=== PATIENT | male | born 1930 | race Caucasian/White ===

== ENCOUNTER 2017-01-22 14:46 | Inpatient (IN) | payer OTHER ==
--- NOTE | ~2017-01-22 | CN ---
Consultation Report [facility] [address] [place]. [address] NAME: TERRIE GRAY : 32 STATUS : ADM Alanna PAT#: [id number] AGE: 86 ADM/REG DATE : 01/22/17 MR#: [id number] REPORT SERV DATE: 01/23/17 DICTATED BY: DATE: REPORT STATUS : Draft TRANSCRIBED BY: MODL DATE: 01/23/17 NEUROLOGY CONSULTATION DATE OF CONSULTATION: 01/23/2017 REASON FOR CONSULT: Stroke and hemorrhagic conversion. HISTORY OF PRESENT ILLNESS: This is an 86-year-old male who presented to [facility] secondary to complaints of vision loss that occurred on 01/22/2017. Symptoms seems to subsequently improve but no focal weakness was noted. The patient at baseline was noted to have fairly severe dementia with confusion. The patient's Namenda as well as Aricept have been stopped. The patient's family is not quite knowing how reliable patient is in reporting vision symptoms. Otherwise, no significant dysarthria was reported. The patient currently was noted to be agitated which according to the family has been a new development after hospital admission. No previous noted behavior issue with dementia was noted. The patient does have a significant history with the confusion but still able to recognize daughter, mold maker plastic molds, as well as next-door neighbor. The patient is unable to recall where he is and does not know year and day for quite a long time. The patient is still able to ambulate by himself but was noted to have difficulties remembering to eat unless the food is right next to him in which case the patient will tend to snack. The patient otherwise required assistance for care at home. No recent illness, fever, chills, nausea, vomiting, chest pain, or shortness of breath was otherwise reported. REVIEW OF SYSTEMS: Negative except for those mentioned in the HPI. PAST MEDICAL HISTORY: Significant for history of the significant dementia as well as oxygen- dependent COPD, emphysema, hypertension, coronary artery disease status post bypass surgery, bilateral carotid endarterectomy as well as prostatectomy secondary to possible prostate cancer. ALLERGIES: THE PATIENT WAS NOTED TO HAVE MULTIPLE ALLERGIES INCLUDING SULFA WELL SULFONYLUREAS, CARBONIC ANHYDRASE INHIBITORS, THIAZIDE, SULFA, FUROSEMIDE, SULFADIAZINE, SILVER NITRATE, AND CELECOXIB. HOME MEDICATIONS: Consist of amlodipine, aspirin, lisinopril, and pravastatin. SOCIAL HISTORY: The patient does have a son. The patient does have previous tobacco usage and no current alcohol or recreational drug usage. The patient does not have any current tobacco usage. It is unclear when patient quit tobacco smoking. FAMILY HISTORY: Significant for leukemia. REVIEW OF SYSTEMS: Consultation Report [place] [id number] [place]. [address] NAME: TERRIE GRAY : 32 STATUS : ADM Alanna PAT#: [id number] AGE: 86 ADM/REG DATE : 01/22/17 MR#: [id number] REPORT SERV DATE: 01/23/17 DICTATED BY: DATE: REPORT STATUS : Draft TRANSCRIBED BY: MODL DATE: 01/23/17 Again, review of systems otherwise negative except for those mentioned in the HPI. PHYSICAL EXAMINATION: VITAL SIGNS: At the time of evaluation overnight, patient was noted to have vital signs with T-max of 98.3, heart rate of 82 to 127, respirations of 14 to 20, and blood pressure of 106 to 171 over 55 to 98. GENERAL: The patient is well developed, well nourished, no acute distress. CARDIOVASCULAR EXAMINATION: Regular rate and rhythm. No carotid bruits were otherwise auscultated. PULMONARY: Examination was clear to auscultation bilaterally. NEUROLOGICAL EXAMINATION: Generally, the patient is alert, does not answer orientation question, does not follow commands. The patient was noted to have some dysarthria at the time of evaluation. Cranial nerves 2 through 12, pupils equal, round, and reactive to light. Extraocular eye movement was noted to be intact. The patient does not appear to have good blink to threat response in bilateral visual coffman. Facial expression appeared to be roughly symmetric. The patient does have purposeful movement in bilateral upper extremity and lower extremity with the patient appeared to have response to noxious stimulation. Deep tendon reflex was attenuated throughout. Gait and cerebellar examination were not performed secondary to patient's confusion and agitation as well as difficulty following commands. LABORATORY STUDIES: Demonstrated white blood cell count of 7.6, hemoglobin of 14.2, hematocrit of 43.6, platelet count of 149. Chemistry panel: Sodium 137, potassium 3.9, chloride 110, bicarb 27, BUN of 21, creatinine 1.48, glucose of 208, calcium of 8.4, magnesium 1.6. Serum cholesterol 145, HDL of 28, LDL of 91, triglyceride of 132, vitamin B12 of 527, folate of 24.6, TSH of 1.75 with a hemoglobin A1c of 9.0. The patient's carotid Doppler study otherwise demonstrated no significant carotid diseases. The patient's MRI of the brain demonstrated embolic type of stroke with the patient's strongest stroke burden in the posterior left MCA territory consist of left temporoparietal and some occipital area with hemorrhagic conversion, mild mass effect was seen in, but no clear midline shift was appreciated. The patient in addition also noted small foci of acute stroke in the right subcortical area as well as occipital area. IMPRESSION: 1. Intraparenchymal hemorrhage secondary to hemologic conversion of underlying stroke. 2. Embolic stroke. The patient does have left MCA stroke involving temporal and parietal area with a hemorrhagic conversion as well as small stroke in the right subcortical as well as occipital area. No clear midline shift was seen on DWI sequence. The patient baseline was noted to have significant dementia with patient only recognizing family members, having difficulties at times with p.o. diet and required assistance with activities of daily living. As a result, this patient is unlikely to be good surgical candidate for craniectomy. At this time, we will discontinue aspirin and hold any kind of anticoagulation. Secondary to patient's poor functional status, we will not perform any aggressive diagnostic testing. As a result, we will not perform LEELA or loop Consultation Report [address] [place]. [address] NAME: TERRIE GRAY : 32 STATUS : ADM Alanna PAT#: [id number] AGE: 86 ADM/REG DATE : 01/22/17 MR#: [id number] REPORT SERV DATE: 01/23/17 DICTATED BY: DATE: REPORT STATUS : Draft TRANSCRIBED BY: MODL DATE: 01/23/17 recorder placement secondary to patient's agitation which could be secondary to hospital acquired delirium. We will provide patient with Haldol 1-2 mg IV q.4 to 6 hours as needed for agitation. We will have Speech Therapy perform swallow study once agitation is improved. We will plan to transition patient from Haldol to possible p.o. Seroquel for agitation control. RECOMMENDATION: 1. Discontinue aspirin. 2. No LEELA or loop recorder secondary to poor baseline function. 3. The patient is unlikely to be a good surgical candidate to support surgical intervention secondary to baseline functional status. 4. Haldol 1-2 mg IV q.4 hours to q.6h hours as needed for agitation. 5. Speech Therapy for swallow study. 6. Once the patient's agitation improve, we will transition patient from Haldol to p.o. Seroquel. [facility]/MODL Kurt Rivera MD / [id number] CC: Nancy Gonsales M.D.
--- NOTE | ~2017-01-22 | IDS ---
Interim Discharge Summary [facility] [address] [place]. [address] NAME: TERRIE GRAY : 32 STATUS : ADM IN PAT#: [id number] AGE: 86 ADM/REG DATE : 01/22/17 MR#: [id number] REPORT SERV DATE: 01/29/17 DICTATED BY: ELIAZAR AGUILAR DATE: 01/29/17 REPORT STATUS : Draft TRANSCRIBED BY: MODL DATE: 01/29/17 ADMISSION DATE: 01/22/2017 DISCHARGE DATE: REASON FOR ADMISSION: This is an 86-year-old male with a history of dementia, who has been brought in by the family because of transient visual loss that he had had earlier today. INTERIM DISCHARGE DIAGNOSES: 1. 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 2. Hypertension. 3. Diabetes type 2. 4. Chronic obstructive pulmonary disease. 5. Coronary artery disease. 6. Poor appetite, malnutrition. HOSPITAL COURSE: 1. CVA. The patient was admitted and neuro was consulted. The patient had MRI of the brain per Neuro on 01/23/2017, this would show acute mid centrum semiovale and occipital infarction, right side consistent with ABDULKADIR territory infarction, partially hemorrhagic, large temporoparietal infarction left side with mass effect and hemorrhage. Extra-axial fluid collection over the frontoparietal region, may represent hygroma and/or chronic subdural hematoma. Discussions with family between Neurology and primary team concluded that the patient was not a surgical candidate and was DNR. The patient would have echocardiogram which would show borderline left ventricular function with EF of 45% to 50%. Right ventricle function is intact. Left and right atria appear dilated, valvular anatomy poorly defined, no significant valvular dysfunction suggested. The patient would also have a carotid blood flow study which would show category 1 internal carotid bilaterally, less than 50% stenosis. The patient has not been on aspirin IV or Plavix obviously due to the hemorrhagic conversion, has been on statin. The patient for the first several days was mainly nonresponsive, sleeping a lot, but since then has become more alert and interactive, and has even been able to get up with physical therapy and walk in the hallway. He has not been interested in eating at all, just nibble, taking a few bites of pudding, that sort of thing. I spoke with family about their wishes for feeding tube. They do not wish for the patient to have a feeding tube. So, we will start the patient on mirtazapine for appetite stimulation and supply the patient with Ensure t.i.d. and encourage him to eat and drink. The patient's physical therapy eval recommended care home facility and so case management is working on arranging that; however with being a holiday weekend, we will not be until Monday until that can be arranged. 2. Diabetes type 2. Blood sugars well controlled, ranging from 96 to 134 in the last 24 hours. 3. COPD, at baseline, stable. 4. Hypertension, blood pressures have been a little elevated during stay. We have started the patient on Norvasc and had some improvement. The patient is now on Norvasc 10 mg p.o. daily. Interim Discharge Summary [address] [place]. [address] NAME: TERRIE GRAY : 32 STATUS : ADM IN [facility]#: [id number] AGE: 86 ADM/REG DATE : 01/22/17 MR#: [id number] REPORT SERV DATE: 01/29/17 DICTATED BY: ELIAZAR AGUILAR DATE: 01/29/17 REPORT STATUS : Draft TRANSCRIBED BY: ANKUR DATE: 01/29/17 CURRENT MEDICATIONS: 1. Norvasc 10 mg p.o. daily. 2. Sliding scale insulin NovoLog, before meals and at bedtime, Accu-Cheks. 3. Pravastatin 40 mg p.o. at bedtime. 4. Mirtazapine 25 mg p.o. at bedtime. CURRENT PLAN: The patient has care home rehab arranged. There were hospice discussions already with the family. They are not opposed to hospice, but since the patient has displayed some bounce back from this episode, they wish for patient to attempt rehab, and if unsuccessful, then we will consider hospice at that time. The patient has been able to follow directions and work with PT, so this seems like a reasonable goal. ALIZA/ANKUR Eliazar Aguilar APN / [id number] CC: Brendan Calle M.D. Jake South M.D. Elli Cotton, DNP, [facility]-
--- NOTE | ~2017-01-22 | HP ---
History And Physical [place] [id number] [facility]. [address] NAME: TERRIE GRAY : 32 STATUS : ADM Alanna PAT#: [id number] AGE: 86 ADM/REG DATE : 01/22/17 MR#: [id number] REPORT SERV DATE: 01/23/17 DICTATED BY: KATIE MOFFETT DATE: 01/22/17 REPORT STATUS : Draft TRANSCRIBED BY: MODL DATE: 01/22/17 DATE OF ADMISSION: 01/22/2017 HISTORY OF PRESENT ILLNESS: The patient is a very pleasant 86-year-old male with a history of dementia. He was brought today by his daughter and son-in-law because of episode of transient visual loss that he had earlier during the day. As per patient's daughter's report, the patient was with his caregiver when this episode happen and according to caregiver, the patient bent it over and when he bent it over, he told the caregiver that he cannot see anything and he said that he had visual loss. He denied any chest pain, no shortness of breath, no fever, no rash, no headache, and ambulance was called. So, the patient was brought to [facility] and according to patient's daughter, he regained his vision while he was in an ambulance. Currently, he says that his vision is okay. He denies any chest pain. No shortness of breath. No headache. No fever. No rash. No cough. REVIEW OF SYSTEMS: All 14-point review of systems done and negative except what is stated in the history of present illness. PAST MEDICAL HISTORY: Past medical history was collected from old records as well as from the patient's daughter because the patient has dementia and he cannot really give correct history. The patient has oxygen dependent COPD, emphysema, hypertension, history of coronary artery disease status post coronary artery bypass surgery, history of bilateral carotid endarterectomy, history of prostatectomy likely for prostate cancer, but daughter does not know why he had prostatectomy, as well as history of appendectomy. The patient has dementia and he stays by himself, but he has a caregiver and when caregiver is not there, daughter always there. SURGICAL HISTORY: As listed above. Also, the patient's daughter reported that recently patient's primary care physician did swallowing study on the patient because he had some episodes of coughing and abnormal swallowing and he said that he was told that he can eat normal diet and the swallowing was not severely abnormal. ALLERGIES: THERE ARE MULTIPLE ALLERGIES WHICH INCLUDE SULFA, SULFONYLUREAS, CARBONIC ANHYDRASE INHIBITORS, THIAZIDE, SULFA FUROSEMIDE, SULFADIAZINE, SULFASALAZINE, SILVER NITRATE, AND CELECOXIB. HOME MEDICATIONS: Include amlodipine 5 mg a day, aspirin 81 mg daily, lisinopril 40 mg a day, and pravastatin 40 mg a day. SOCIAL HISTORY: He used to smoke three packs per day. He quit at some time, but he cannot recall when and daughter said maybe a couple of years ago. No alcohol. No recreational drug use. FAMILY HISTORY: Mother of leukemia. Father of age of 52, it is unclear. They do not know why father . History And Physical [address] [place]. [address] NAME: TERRIE GRAY : 32 STATUS : ADM Alanna PAT#: [id number] AGE: 86 ADM/REG DATE : 01/22/17 MR#: [id number] REPORT SERV DATE: 01/23/17 DICTATED BY: KATIE MOFFETT DATE: 01/22/17 REPORT STATUS : Draft TRANSCRIBED BY: ANKUR DATE: 01/22/17 PHYSICAL EXAMINATION: GENERAL: Very pleasant, well-nourished, well-developed male, not in acute distress, resting quietly. VITAL SIGNS: Blood pressure 156/80, temperature 97.8, heart rate 80, respiratory rate 14, oxygen saturation 97% on 2 L nasal cannula. HEENT: Head is atraumatic, normocephalic. Conjunctivae clear. Pupils are equal, reactive to light and accommodation. Extraocular muscles are intact. NECK: Supple. Trachea is midline. No supraclavicular or cervical lymphadenopathy. LUNGS: Diminished breath sounds bilaterally. Decreased respiratory effort. CARDIOVASCULAR: Regular rate and rhythm. Point of maximal impulse not displaced. ABDOMEN: Soft, nontender, nondistended. Positive normoactive bowel sounds. EXTREMITIES: No clubbing, cyanosis, or edema. Skin normal color and turgor. NEUROLOGIC: He is awake. He knows that he is in the hospital. He does not know the year. He can follow commands. Muscle strength is 5/5 bilaterally on upper and lower extremities. Cranial nerves 3-12 are grossly intact. PSYCHIATRIC: Normal mood and affect. LABORATORY RESULTS: Sodium 139, potassium 4.8, chloride 104, carbon dioxide 31, BUN 26, creatinine 1.83, blood sugar 267. Troponin less than 0.02. ALT 16, AST 12. White count 7.6, hemoglobin 14.2, hematocrit 43.6, platelet count 149. UA did not show any evidence of UTI. Chest x-ray was taken in the emergency room, personally reviewed by me, it showed chronic changes of COPD. No acute abnormality. Official Radiology report currently pending. EKG showed normal sinus rhythm with inferior infarction of undetermined age and mild LVH. ASSESSMENT AND PLAN: This is a very pleasant 86-year-old male with a past medical history of carotid artery disease, status post bilateral carotid endarterectomy; hypertension; chronic obstructive pulmonary disease; emphysema, oxygen dependent; history of coronary artery disease, status post coronary artery bypass grafting; history of prostatectomy; and dementia; presented with, 1. Transient visual loss. 2. Mild acute kidney injury versus chronic kidney disease. 3. Hypertension. 4. Hyperglycemia, most likely diabetes mellitus. 5. History of abnormal swallowing in the past. Evaluated by primary care doctor. 6. Dementia. For his transient visual loss, differential diagnosis includes possible TIA versus some orthostatic hypotension with syncopal episode. Taking into consideration his risk factors which include carotid artery disease in the past as well as coronary artery disease and diabetes, we have to rule out TIA and possible early stroke. We will do MRI/MRA of the brain as well as we will check fasting lipid profile, hemoglobin A1c, bilateral carotid ultrasound, and echocardiogram. Abnormal creatinine being of 1.8. We do not have recent creatinine, question if this is History And Physical [address] [address] NAME: TERRIE GRAY : 32 STATUS : ADM Alanna PAT#: [id number] AGE: 86 ADM/REG DATE : 01/22/17 MR#: [id number] REPORT SERV DATE: 01/23/17 DICTATED BY: KATIE MOFFETT DATE: 01/22/17 REPORT STATUS : Draft TRANSCRIBED BY: MODPretty DATE: 01/22/17 prerenal azotemia with dehydration versus chronic kidney disease. The patient will be given gentle IV fluid hydration and creatinine will be rechecked tomorrow. Oxygen-dependent chronic obstructive pulmonary disease. Currently at the baseline. Baseline dementia. It is really difficult to obtain from this patient any information regarding the episode that happened with him because he has dementia and he cannot really explain correctly his symptoms. We will check also his cardiac telemetry. We will check his serial troponins and echocardiogram. We will check his hemoglobin A1c and put him on NovoLog sliding scale since he has hyperglycemia as well. Everything was discussed with the patient and his family, his daughter and son-in-law. We will also check his modified barium swallowing study. The patient's family reported that it was recently checked by primary care physician, but we do not have any results. We will repeat it to make sure patient does not have any problems with swallowing. Currently, he will be kept on aspiration precautions and soft mechanical diet. MG/MODL Katie Moffett M.D. / [id number] CC: Nancy Gonsales M.D.
--- NOTE | ~2017-01-22 | DS ---
Discharge Summary [facility] [address] [place]. [address] NAME: TERRIE GRAY : 32 STATUS : DIS IN PAT#: [id number] AGE: 86 ADM/REG DATE : 01/22/17 MR#: [id number] REPORT SERV DATE: 02/08/17 DICTATED BY: ELIAZAR AGUILAR DATE: 02/07/17 REPORT STATUS : Draft TRANSCRIBED BY: MODL DATE: 02/07/17 ADMISSION DATE: 01/22/2017 DISCHARGE DATE: 02/07/2017 REASON FOR ADMISSION: This is an 86-year-old male with a history of dementia who was brought in by the family because of transient visual loss that he had earlier in the day prior of admission. DISCHARGE DIAGNOSES: 1. Left middle cerebral artery embolic cerebrovascular accident with hemorrhagic conversion. 2. Hypertension. 3. Diabetes type 2. 4. Chronic obstructive pulmonary disease. 5. Coronary artery disease. 6. Poor appetite. Poor nutrition. HOSPITAL COURSE: Please see admission H and P from Dr. Shayla Stephen on 01/23/2017, interim discharge summary from myself on 01/29/2017 and interim discharge summary from Dr. Mayco Villanueva on 02/06/2017 for full details on admission and hospital stay. The patient was awaiting rehab placement, status post stroke. Repeat CT of the brain had shown improvement to the stroke area and no increase in the size of the hemorrhagic conversion. The patient was being more alert, more interactive, and had actually started to eat this last week. However, he was having some issues on and off with agitation and behavior. His Seroquel dosage was adjusted and the patient has been better in the last 48 hours, so he has been accepted by [facility] with the goal of returning home. If the patient is unable to improve functional status at rehab, at that point, hospice services will be considered. DISCHARGE CONDITION: Stable. DISCHARGE MEDICATIONS: 1. Norvasc 5 mg p.o. daily. 2. Lisinopril 40 mg p.o. daily. 3. Pravastatin 40 mg p.o. daily. 4. Aspirin 81 mg p.o. daily. 5. Multivitamin one tablet daily. 6. Pravastatin 40 mg p.o. q.h.s. 7. Seroquel 12.5 mg p.o. q.h.s. DISCHARGE PLAN: The patient is discharged to [facility]. Follow up with primary care after rehab with consideration of hospice if the patient fails rehab. DICTATED BY: Eliazar Aguilar APN Discharge Summary [address] [place]. [address] NAME: TERRIE GRAY : 32 STATUS : DIS IN PAT#: [id number] AGE: 86 ADM/REG DATE : 01/22/17 MR#: [id number] REPORT SERV DATE: 02/08/17 DICTATED BY: ELIAZAR AGUILAR DATE: 02/07/17 REPORT STATUS : Draft TRANSCRIBED BY: ANKUR DATE: 02/07/17 ALIZA/ANKUR Eliazar Aguilar APN / [id number] CC: Jane Frias,RENE Cotton, KAYLEIGH, ACNP-
--- NOTE | ~2017-01-22 | IDS ---
Interim Discharge Summary [facility] [address] [place]. 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 CONSULTATIONS AND PROCEDURES: As listed in the interim summary by Sergei Mello on 01/22/2017. CURRENT PHYSICAL FINDINGS AND HISTORY OF PRESENT ILLNESS: Please see initial H and P as well as Neurology consultation and interim summary on 01/29/2017. I took over the patient's care on 01/31/2017 and will dictate from that point. Basically at that point, the patient had been through his acute neurological evaluation. He was having no further progressive or ongoing neurological problems. He had a previous history of dementia prior to his CVA and he was having failure to thrive issues, not wanting to eat. A discussion on treatment goals, code status, and intervention had already been discussed with the family and no feeding tube was to be placed. The patient was going to be transitioned over to [facility] for further treatment; however, he had not been accepted at that point. On 01/31/2017, he was stable. His blood sugars were in the 90s to 100s because of his poor p.o. intake. He was on a level 2 sliding scale, this was decreased. He was getting Seroquel 25 at bedtime and Remeron to help with his appetite and p.r.n. Haldol if needed, although he is not really receiving the Haldol. No significant change in his situation on 02/01/2017. On 02/02/2017, there were no other issues. On 02/03/2017, he seemed to be more sedated and difficult to arouse. I had a long discussion with the family. They were in agreement to decrease his medications as they felt that if there was any significant neurological change that with his current situation, they would not request any additional intervention. On 02/04/2017, he was having issues with bowel movement and milk of magnesia was given. We also restarted his Seroquel which had been on hold at a lower dose of 12.5 to see if it would help with his link trainer somnolence which it did. On 02/05/2017, this was continued. On 02/06/2017, he was reassessed. He was still having poor p.o. intake. IV fluids had been started the evening before for a creatinine of 1.8 per his POA's request. He has not had to be restrained. He has not received any Haldol. He only gets mildly agitated at times usually if he has been stuck for a blood sugar or lab. Current plan and disposition is to hopefully transition to [facility] if he is accepted and approved by insurance today. We will check a.m. labs in the morning since the IV fluids were restarted. He has been on a very minimally aggressive blood sugar control due to his poor p.o. intake. PT continues to work with him. YUEF/ANKUR Anne Ponce M.D. Interim Discharge Summary [address] [address] NAME: TERRIE GRAY : 34 STATUS : ADM IN PAT#: [id number] AGE: 86 ADM/REG DATE : 01/22/17 MR#: [id number] REPORT SERV DATE: 02/06/17 DICTATED BY: ANNE PONCE DATE: 02/06/17 REPORT STATUS : Draft TRANSCRIBED BY: MODL DATE: 02/06/17 / [id number] CC: Jane Duff M.D.
[~2017-01-22 14:46] MED LIST: ASAB PO; ATEN50 PO; CAP50 PO; MEVACOR40 MG PO; [UNRECOGNIZED DRUG - REMARK] PO
[2017-01-22 15:49] LABS: BASOPHILS 1.2 %; BASOPHILS ABSOLUTE 0.09 10/3/uL (0.0-0.16); EOSINOPHILS 3.3 %; EOSINOPHILS ABSOLUTE 0.25 10/3/uL (0.0-0.53); ER CBC TAT 0 Hrs 07 Mins; IMMATURE GRANULOCYTES 0.3 %; IMMATURE GRANULOCYTES ABSOLUTE 0.02 10/3/uL (0.0-0.11); LYMPHOCYTES 5.7 %; LYMPHOCYTES ABSOLUTE 0.43 10/3/uL (0.67-4.30); MEAN CORPUS HGB CONC 32.6 g/dL (32.0-36.0); MEAN CORPUSCULAR HEMOGLOB 29.2 pg (26.0-34.0); MEAN CORPUSCULAR VOLUME 89.5 fL (80-100); MEAN PLATELET VOLUME 11.3 fL (9.2-13.0); MONOCYTES 7.9 %; NEUTROPHILS 81.6 %; NEUTROPHILS ABSOLUTE 6.16 10/3/uL (2.02-8.40); WHITE BLOOD CELLS 7.6 10/3/uL (4.5-10.5)
[2017-01-22 15:51] LABS: HEMATOCRIT 43.6 % (40.0-51.0); HEMOGLOBIN 14.2 g/dL (13.6-17.8); MANUAL DIFF NO %; PLATELET COUNT 149 10/3/uL (150-400); RED CELL COUNT 4.87 10/6/uL (4.7-6.1)
[2017-01-22 15:55] LABS: INTERNATIONAL NORMAL RATI 1.1 UNITS (-); PROTIME (NOT ORD) 14.1 SEC (12.0-14.5)
[2017-01-22 15:56] LABS: PARTIAL THROMBO TIME 31.6 SEC (22.5-37.2)
[2017-01-22 16:06] LABS: A/G RATIO 0.9 (0.7-1.9); ALBUMIN 3.4 G/DL (3.5-5.0); ALKALINE PHOSPHATASE 95 U/L (45-117); CHLORIDE, SERUM 104 MMOL/L (96-112); CO2 (CARBON DIOXIDE) 31 MMOL/L (24-34); GLUCOSE, SERUM 267 MG/DL (60-99); SGPT(ALT) 16 U/L (5-65); SODIUM, SERUM 139 MMOL/L (135-148); TOTAL BILIRUBIN 0.9 MG/DL (0-1.2); TOTAL PROTEIN 7.4 G/DL (6.0-8.5); TROPONIN I <0.02 NG/ML (<0.05)
[2017-01-22 16:08] LABS: BUN (BLOOD UREA NITROGEN) 26 MG/DL (6-23); CALCIUM, SERUM 8.8 MG/DL (8.5-10.4); CREATININE 1.83 MG/DL (0.70-1.30); GFR AFRICAN AMERICAN 38 ML/MIN (>=60); GFR NON AFRICAN AMERICAN 33 ML/MIN (>=60); POTASSIUM, SERUM 4.8 MMOL/L (3.5-5.3); SGOT(AST) 12 U/L (5-40)
[2017-01-22 16:17] LABS: ASCORBIC ACID (UR NOT ORDER) NEG (NEG); BILIRUBIN, URINE NEGATIVE (NEG); ER URINALYSIS TAT 0 Hrs 11 Mins; KETONE, URINE NEGATIVE (NEG); LEUKOCYTE ESTERASE(NOT OR NEG (NEG); NITRITE (URINE) NEG (NEG); WBC (NOT ORDERED) (RFLEX) < 1 (0-5)
[2017-01-22] MEDS ORDERED: PRIN20 PO (19:34)
[2017-01-22] MEDS ORDERED: NORV5 PO (19:34)
[2017-01-22] MEDS ORDERED: PRAVACHOL40 MG PO (19:35)
[2017-01-22] MEDS ORDERED: ASAB PO (19:36)
[2017-01-22] MEDS ORDERED: ZYRTEC ALLGY10 MG PO (19:36)
[2017-01-22] MEDS ORDERED: MULTIVITAMI1 PO (19:36)
[2017-01-22] MEDS ORDERED: ALBUTEROL0.083 % INH (19:37)
[2017-01-22 23:40] LABS: CHOL/HDL RATIO(NOT ORDER) 5.2 (0-5); TROPONIN I 0.02 NG/ML (<0.05); ULTRASENSITIVE TSH 1.75 MCIU/ML (0.358-3.740)
[2017-01-22 23:42] LABS: FOLATE 24.6 NG/ML (>5.2)
[2017-01-23 06:03] LABS: CALCIUM, SERUM 8.4 MG/DL (8.5-10.4); CHLORIDE, SERUM 110 MMOL/L (96-112); CO2 (CARBON DIOXIDE) 27 MMOL/L (24-34); CREATININE 1.48 MG/DL (0.70-1.30); GFR AFRICAN AMERICAN 50 ML/MIN (>=60); GFR NON AFRICAN AMERICAN 43 ML/MIN (>=60); POTASSIUM, SERUM 3.9 MMOL/L (3.5-5.3); SODIUM, SERUM 137 MMOL/L (135-148); TROPONIN I <0.02 NG/ML (<0.05)
[2017-01-23 06:04] LABS: BUN (BLOOD UREA NITROGEN) 21 MG/DL (6-23); GLUCOSE, SERUM 208 MG/DL (60-99)
[2017-01-24 06:22] LABS: CHLORIDE, SERUM 108 MMOL/L (96-112); CO2 (CARBON DIOXIDE) 31 MMOL/L (24-34); CREATININE 1.54 MG/DL (0.70-1.30); GFR AFRICAN AMERICAN 47 ML/MIN (>=60); GFR NON AFRICAN AMERICAN 41 ML/MIN (>=60); GLUCOSE, SERUM 176 MG/DL (60-99); POTASSIUM, SERUM 4.4 MMOL/L (3.5-5.3)
[2017-01-24 06:23] LABS: BUN (BLOOD UREA NITROGEN) 17 MG/DL (6-23); SODIUM, SERUM 144 MMOL/L (135-148)
[2017-01-24 06:32] LABS: BASOPHILS 0.4 %; BASOPHILS ABSOLUTE 0.03 10/3/uL (0.0-0.16); EOSINOPHILS ABSOLUTE 0.16 10/3/uL (0.0-0.53); HEMATOCRIT 42.7 % (40.0-51.0); HEMOGLOBIN 13.8 g/dL (13.6-17.8); IMMATURE GRANULOCYTES 0.2 %; IMMATURE GRANULOCYTES ABSOLUTE 0.02 10/3/uL (0.0-0.11); LYMPHOCYTES ABSOLUTE 0.48 10/3/uL (0.67-4.30); MANUAL DIFF NO %; MEAN CORPUS HGB CONC 32.3 g/dL (32.0-36.0); MEAN CORPUSCULAR HEMOGLOB 29.1 pg (26.0-34.0); MEAN CORPUSCULAR VOLUME 89.9 fL (80-100); MEAN PLATELET VOLUME 11.3 fL (9.2-13.0); MONOCYTES 9.1 %; MONOCYTES ABSOLUTE 0.73 10/3/uL (0.21-1.20); NEUTROPHILS 82.3 %; NEUTROPHILS ABSOLUTE 6.64 10/3/uL (2.02-8.40); PLATELET COUNT 154 10/3/uL (150-400); RED CELL COUNT 4.75 10/6/uL (4.7-6.1); WHITE BLOOD CELLS 8.1 10/3/uL (4.5-10.5)
[2017-01-31 14:36] LABS: BUN (BLOOD UREA NITROGEN) 17 MG/DL (6-23); CALCIUM, SERUM 9.4 MG/DL (8.5-10.4); CHLORIDE, SERUM 101 MMOL/L (96-112); CREATININE 1.39 MG/DL (0.70-1.30); GFR AFRICAN AMERICAN 54 ML/MIN (>=60); GFR NON AFRICAN AMERICAN 46 ML/MIN (>=60); POTASSIUM, SERUM 4.4 MMOL/L (3.5-5.3); SODIUM, SERUM 139 MMOL/L (135-148)
[2017-01-31 14:37] LABS: CO2 (CARBON DIOXIDE) 22 MMOL/L (24-34); GLUCOSE, SERUM 123 MG/DL (60-99)
[2017-02-04 06:20] LABS: BASOPHILS 0.8 %; BASOPHILS ABSOLUTE 0.05 10/3/uL (0.0-0.16); EOSINOPHILS 4.8 %; EOSINOPHILS ABSOLUTE 0.32 10/3/uL (0.0-0.53); HEMATOCRIT 43.9 % (40.0-51.0); IMMATURE GRANULOCYTES 0.6 %; IMMATURE GRANULOCYTES ABSOLUTE 0.04 10/3/uL (0.0-0.11); LYMPHOCYTES 9.2 %; LYMPHOCYTES ABSOLUTE 0.61 10/3/uL (0.67-4.30); MEAN CORPUS HGB CONC 31.9 g/dL (32.0-36.0); MEAN CORPUSCULAR HEMOGLOB 28.7 pg (26.0-34.0); MEAN CORPUSCULAR VOLUME 90.1 fL (80-100); MONOCYTES ABSOLUTE 0.73 10/3/uL (0.21-1.20); NEUTROPHILS 73.6 %; PLATELET COUNT 130 10/3/uL (150-400); RBC DISTRIBUTION WIDTH 14.1 % (12.0-16.0); RED CELL COUNT 4.87 10/6/uL (4.7-6.1); WHITE BLOOD CELLS 6.7 10/3/uL (4.5-10.5)
[2017-02-04 06:21] LABS: MANUAL DIFF NO %
[2017-02-04 06:28] LABS: BUN (BLOOD UREA NITROGEN) 25 MG/DL (6-23); CALCIUM, SERUM 9.5 MG/DL (8.5-10.4); CHLORIDE, SERUM 106 MMOL/L (96-112); CO2 (CARBON DIOXIDE) 34 MMOL/L (24-34); GFR AFRICAN AMERICAN 39 ML/MIN (>=60); GFR NON AFRICAN AMERICAN 34 ML/MIN (>=60); GLUCOSE, SERUM 153 MG/DL (60-99); POTASSIUM, SERUM 4.3 MMOL/L (3.5-5.3); SODIUM, SERUM 146 MMOL/L (135-148)
[2017-02-07 08:52] LABS: BASOPHILS 0.9 %; BASOPHILS ABSOLUTE 0.06 10/3/uL (0.0-0.16); EOSINOPHILS 5.6 %; EOSINOPHILS ABSOLUTE 0.36 10/3/uL (0.0-0.53); HEMATOCRIT 41.1 % (40.0-51.0); HEMOGLOBIN 13.1 g/dL (13.6-17.8); IMMATURE GRANULOCYTES 0.5 %; IMMATURE GRANULOCYTES ABSOLUTE 0.03 10/3/uL (0.0-0.11); LYMPHOCYTES 8.5 %; LYMPHOCYTES ABSOLUTE 0.55 10/3/uL (0.67-4.30); MEAN CORPUS HGB CONC 31.9 g/dL (32.0-36.0); MEAN CORPUSCULAR HEMOGLOB 28.9 pg (26.0-34.0); MEAN CORPUSCULAR VOLUME 90.5 fL (80-100); MONOCYTES 9.9 %; MONOCYTES ABSOLUTE 0.64 10/3/uL (0.21-1.20); NEUTROPHILS 74.6 %; NEUTROPHILS ABSOLUTE 4.82 10/3/uL (2.02-8.40); PLATELET COUNT 132 10/3/uL (150-400); RED CELL COUNT 4.54 10/6/uL (4.7-6.1); WHITE BLOOD CELLS 6.5 10/3/uL (4.5-10.5)
[2017-02-07 08:54] LABS: MANUAL DIFF NO %
[2017-02-07 09:05] LABS: CHLORIDE, SERUM 108 MMOL/L (96-112); CO2 (CARBON DIOXIDE) 31 MMOL/L (24-34); CREATININE 1.35 MG/DL (0.70-1.30); GFR AFRICAN AMERICAN 55 ML/MIN (>=60); GFR NON AFRICAN AMERICAN 48 ML/MIN (>=60); GLUCOSE, SERUM 158 MG/DL (60-99); POTASSIUM, SERUM 3.8 MMOL/L (3.5-5.3); SODIUM, SERUM 146 MMOL/L (135-148)
[2017-02-07 09:07] LABS: BUN (BLOOD UREA NITROGEN) 16 MG/DL (6-23); CALCIUM, SERUM 8.3 MG/DL (8.5-10.4)
== END 2017-02-07 15:18 | DRG 64 ==
LOC: ER 14:46 → CDU1 20:05 → CDU2 01-23 17:39 → 1SO 01-25 08:20
PROVIDERS: Emergency Medicine; Internal Medicine; Nurse Practitioner Family
DX: I63.412 Cerebral infarction due to embolism of left middle cerebral artery (principal); I61.8 Other nontraumatic intracerebral hemorrhage; N17.9 Acute kidney failure, unspecified; J96.10 Chronic respiratory failure, unspecified whether with hypoxia or hypercapnia; E44.0 Moderate protein-calorie malnutrition; H53.129 Transient visual loss, unspecified eye; F03.90 Unspecified dementia, unspecified severity, without behavioral disturbance, psychotic disturbance, mood disturbance, and anxiety; Z66 Do not resuscitate; K59.00 Constipation, unspecified; E11.65 Type 2 diabetes mellitus with hyperglycemia; Z99.81 Dependence on supplemental oxygen; E78.5 Hyperlipidemia, unspecified; J44.9 Chronic obstructive pulmonary disease, unspecified; I10 Essential (primary) hypertension; I25.10 Atherosclerotic heart disease of native coronary artery without angina pectoris; Z79.82 Long term (current) use of aspirin; Z79.899 Other long term (current) drug therapy; Z87.891 Personal history of nicotine dependence; Z95.1 Presence of aortocoronary bypass graft; Z90.79 Acquired absence of other genital organ(s); Z88.2 Allergy status to sulfonamides; Z88.8 Allergy status to other drugs, medicaments and biological substances; Z95.5 Presence of coronary angioplasty implant and graft; Z85.46 Personal history of malignant neoplasm of prostate
CPT/HCPCS: 70450; 70551-52; 71010; 74230; 80048; 80053; 80061; 81001; 82140; 82607; 82746; 82962; 83036; 83735; 84443; 84484; 85025; 85610; 85730; 92611-GN; 93005; 93882; 94640; 97110-GO; 97110-GP; 97116-GP; 97161-GP; 97166-GO; 97530-GP; 97535-GO; 99285; A9270-GY; C8929; J1630; J3475; J3486; Q9957